=== PATIENT | male | born 1980 | race Caucasian/White ===

== ENCOUNTER 2023-06-04 15:04 | Emergency (ER) | payer OTHER, SELFPAY ==
[2023-06-04 15:18] VITALS: BP 117/71; PULSE 89; RESP 16; TEMP 36.3; O2SAT 96
--- NOTE | 2023-06-04 15:38 | ED.GENADULT ---
HPI - General Adult General Chief complaint: Eye Problems Stated complaint: Rt Eye Irritation Time Seen by Provider: 06/04/23 15:38 Source: patient Mode of arrival: ambulatory Limitations: no limitations History of Present Illness HPI narrative: 42-year-old male patient presents to the [facility] with complaints of right eye pain. Patient states he thought he felt an eyelash in his eye yesterday but it went away and this morning woke up and had sensitivity to the light and pain to the right eye. Related Data Home Medications Medication Instructions Recorded Confirmed allopurinol 300 mg tablet 300 mg PO DAILY 06/04/23 06/04/23 amlodipine 5 mg-benazepril 20 mg 1 cap PO DAILY 06/04/23 06/04/23 capsule Allergies Allergy/AdvReac Type Severity Reaction Status Date / Time No Known Allergies Allergy Verified 06/04/23 15:24 Review of Systems Review of Systems: CONSTITUTIONAL: Denies fever, chills, or sweats. EYES: Denies visual changes, Positive right eye redness, and discharge. ENT: Denies rhinorrhea, congestion, sore throat, or otalgia. CARDIOVASCULAR: Denies chest pain, palpitations, or edema. RESPIRATORY: Denies cough or dyspnea. GASTROINTESTINAL: Denies abdominal pain, nausea, vomiting, or diarrhea. GENITOURINARY: Denies dysuria or hematuria. SKIN: Denies rash or itching. MUSCULOSKELETAL: Denies back pain, joint pain, or myalgia. NEUROLOGIC: Denies headache, numbness, or weakness. PSYCHIATRIC: Denies anxiety or depression. PMFSH Comments At the time of my signature I agree with nursing past medical history, surgical, social, and family history. There is no relevant family history pertinent to the presenting complaint. Exam Narrative: GENERAL: Well-appearing, well-nourished, and in no acute distress. HEAD: Normocephalic, atraumatic. EYES: PERRLA and EOM intact without limitation or complaint of pain, no periorbital soft tissue swelling ,no erythema, warmth or tenderness noted, no obvious deformity. No crusting or swelling. clear tearing or draining. positivephotophobia. No nystagmus No FB or lesion on lid eversion. Corneas grossly clear, no obvious FB or hyphens/hypopyon. injection to sclera. Lids and lashes clear. the right eye was dyed and examined under Wood's lamp and there is a significant corneal abrasion noted to the 5:00 a.m. area of the cornea. ENT: Nares clear, no rhinorrhea or epistaxis. Mucous membranes moist. NECK: Supple. No lymphadenopathy CHEST: Clear to auscultation. No respiratory distress. HEART: Regular rate and rhythm. No murmur heard. Normal peripheral pulses. ABDOMEN: Soft, nontender, nondistended, normal active bowel sounds. EXTREMITIES: Normal range of motion. No edema. SKIN: Warm, dry, no rash. NEURO: No focal deficits. Alert and oriented x3. Course Course Level of Care: Express Care Visit Vital Signs Vital signs: Vital Signs Temperature 36.3 C L 06/04/23 15:18 Pulse Rate 89 06/04/23 15:18 Respiratory Rate 16 06/04/23 15:18 Blood Pressure 117/71 06/04/23 15:18 Pulse Oximetry 96 06/04/23 15:18 Oxygen Delivery Room Air 06/04/23 15:18 Temperature 36.3 C L 06/04/23 15:18 Pulse Rate 89 06/04/23 15:18 Respiratory Rate 16 06/04/23 15:18 Blood Pressure 117/71 06/04/23 15:18 Pulse Oximetry 96 06/04/23 15:18 Oxygen Delivery Room Air 06/04/23 15:18 vital signs reviewed Medical Decision Making MDM Narrative Medical decision making narrative: Plan care patient is discharged home with erythromycins ointment for the eye. Did encourage patient to avoid bright lights and follow-up with eye doctor as needed. Differential Diagnosis Differential Diagnosis: differential diagnosis: Conjunctivitis, foreign body, corneal ulcer, Keratitis, dendritic lesions, corneal abrasion, very orbital infection, orbital cellulitis, orbital pain, acute narrow angle glaucoma, detached retina, central retinal artery occlusion, complete hyphema, vitr
== END 2023-06-04 15:50 | disposition home or self-care (01) ==
PROVIDERS: Emergency Provider Nurse Practitioner Family; PCP Family Medicine
DX: S05.01XA Injury of conjunctiva and corneal abrasion without foreign body, right eye, initial encounter (principal); X58.XXXA Exposure to other specified factors, initial encounter; I10 Essential (primary) hypertension; M10.9 Gout, unspecified
CPT/HCPCS: 99203; A9270; G0463